=== PATIENT | male | born 1950 | race Caucasian/White ===

== ENCOUNTER 2016-12-23 06:42 | Emergency (ER) | payer OTHER, BC ==
[~2016-12-23] VITALS: Ht 182.9 cm; Wt 116.0 kg
[2016-12-23] MEDS ORDERED: GLYBURIDE5 M1 PO (07:02)
[2016-12-23] MEDS ORDERED: METFORMIN500 M1 PO (07:02)
[2016-12-23] MEDS ORDERED: LOVASTATIN10 M1 PO (07:02)
[2016-12-23] MEDS ORDERED: NAPROSYN500 MG PO (08:14)
[2016-12-23 08:29] VITALS: BP 156/74
== END 2016-12-23 08:30 | disposition home or self-care (01) | DRG 552 ==
LOC: ED 06:42
DX: S16.1XXA Strain of muscle, fascia and tendon at neck level, initial encounter (principal); V53.5XXA Driver of pick-up truck or van injured in collision with car, pick-up truck or van in traffic accident, initial encounter; Y92.414 Local residential or business street as the place of occurrence of the external cause

== ENCOUNTER 2020-12-17 08:49 | Emergency (ER) | payer MEDICARE, BC ==
[~2020-12-17] VITALS: Ht 182.9 cm; Wt 90.0 kg
[~2020-12-17 08:49] MED LIST: GLYBURIDE5 M1 PO; LOVASTATIN10 M1 PO; METFORMIN500 M1 PO; NAPROSYN500 MG PO
[2020-12-17 10:30] LABS: HEMATOCRIT 38.8 % (39.0-50.0); HEMOGLOBIN 12.1 g/dl (14.0-18.0); IMMATURE GRANULOCYTES 0.1 % (0.0-5.0); MEAN CELL VOLUME 88.2 fL CALC (80.0-100.0); MEAN CORPUSCULAR HGB 27.5 pG CALC (26.0-32.0); MEAN CORPUSCULAR HGB CONC 31.2 g/dL CAL (32.0-36.0); NEUT# 5.52 thou/uL (1.82-7.42); RED BLOOD COUNT 4.4 mill/uL (4.70-6.10); RED CELL DISTRI WIDTH 14.3 % (11.5-15.5)
[2020-12-17 10:46] LABS: ALBUMIN 3.7 g/dL (3.2-5.0); ALKALINE PHOSPHATASE 56 u/l (38-126); AMYLASE 85 u/l (30-110); BUN 19 mg/dL (8-23); BUN/CREATININE RATIO 21 (12-20 (CALC)); CARBON DIOXIDE 28 mmol/l (22-30); CHLORIDE 94 mmol/l (95-108); CREATININE 0.9 mg/dL (0.7-1.3); ETHYL ALCOHOL 0 mg/dl (0-30); GFR > 60 ML/MIN (>=60 (CALC)); GFR FOR AFR.AMER. > 60 ML/MIN (>=60 (CALC)); LIPASE 342 u/l (23-300); MAGNESIUM 1.2 mg/dL (1.6-2.3); POTASSIUM 4.8 mmol/l (3.5-5.1); SGOT/AST 72 u/l (19-48); TOTAL PROTEIN 7.5 g/dL (6.3-8.2)
[2020-12-17 10:47] LABS: ACT PARTIAL THROMBO TIME 28.4 SECONDS (20.0-32.5); ANION GAP 12 (6-22 (CALC)); BILIRUBIN, TOTAL 0.3 mg/dL (0.0-1.4); INTERNATIONAL NORMALIZED RATIO 1.2 RATIO (0.7-1.3); PROTHROMBIN TIME 12.7 SECONDS (9.0-12.5); SODIUM 129 mmol/l (137-146)
[2020-12-17 12:38] LABS: URINE BILIRUBIN - DIPSTICK NEGATIVE (NEGATIVE); URINE BLOOD DIPSTICK NEGATIVE (NEGATIVE); URINE COLOR YELLOW; URINE GLUCOSE - DIPSTICK NEGATIVE (NEGATIVE); URINE KETONE NEGATIVE (NEGATIVE); URINE LEUK ESTERASE NEGATIVE (NEGATIVE); URINE PH 5.5 (4.5-8.0); URINE PROTEIN - DIPSTICK NEGATIVE (NEG-TRACE)
[2020-12-17 12:41] LABS: URINE NITRITE - DIPSTICK NEGATIVE (Negative)
[2020-12-17 13:00] VITALS: BP 118/66
== END 2020-12-17 13:20 | disposition short-term general hospital (02) ==
LOC: ED 08:49
DX: R91.8 Other nonspecific abnormal finding of lung field (principal); R16.0 Hepatomegaly, not elsewhere classified; R16.1 Splenomegaly, not elsewhere classified; E11.9 Type 2 diabetes mellitus without complications; I10 Essential (primary) hypertension; F17.210 Nicotine dependence, cigarettes, uncomplicated; Z79.84 Long term (current) use of oral hypoglycemic drugs; Z80.0 Family history of malignant neoplasm of digestive organs; Z20.822 Contact with and (suspected) exposure to COVID-19
CPT/HCPCS: Q9967